=== PATIENT | female | born 1985 | race Caucasian/White ===

== ENCOUNTER 2021-04-13 19:47 | Emergency (ER) | payer OTHER ==
--- NOTE | 2021-04-13 20:49 | EDM.PDOC ---
ED HPI GENERAL MEDICAL PROBLEM - General Chief Complaint: Upper Extremity Injury/Pain Stated Complaint: RIGHT WRIST PAIN Time Seen by Provider: 04/13/21 20:35 Source of Information: Reports: Patient, RN Notes Reviewed History Limitations: Reports: No Limitations - History of Present Illness INITIAL COMMENTS - FREE TEXT/NARRATIVE: Patient is a 36-year-old female who presents to the ER for the evaluation of her right wrist pain. Patient notes that this started about 24 hours ago, she states that the pain is somewhat steady, does seem to worsen when she grasps things, or tries to flex or extend her wrist at the wrist joint. States that she does feel some shooting pains up her arm, and into her elbow, and down her fingers as well. States there has been no trauma to the area, she is on vacation, they have been doing a lot of horseback riding, and farm activities but does not think she has done any major repetitive motions with her wrist. She has been taking Tylenol and Midol for pain management but nothing seems to be helping much at all. Patient denies any other sick-like symptoms, fever/chills, cough/shortness of breath, nausea/vomiting/diarrhea. Right Wrist Pain Score (Numeric/FACES): 6 - Related Data Allergies Allergy/AdvReac Type Severity Reaction Status Date / Time metoclopramide [From Reglan] Allergy Shortness Verified 04/13/21 20:10 of Breath Penicillins Allergy Other Verified 04/13/21 20:11 Home Meds: Home Meds . [No Known Home Meds] 04/13/21 [History] Past Medical History - Past Health History Medical/Surgical History: Denies Medical/Surgical History Social & Family History - Tobacco Use Tobacco Use Status *Q: Never Tobacco User Second Hand Smoke Exposure: No - Caffeine Use Caffeine Use: Reports: Coffee - Recreational Drug Use Recreational Drug Use: No Review of Systems - Review of Systems Review Of Systems: Comprehensive ROS is negative, except as noted in HPI. 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.) Neurological: Alert, Oriented, Normal Cognition, No Motor/Sensory Deficits Psychiatric: Normal Affect, Normal Mood Skin Exam: Warm, Dry, Intact, Normal Color, No Rash Course - Vital Signs Last Recorded V/S: Last Vital Signs Temp 97.1 F 04/13/21 20:09 Pulse 88 04/13/21 20:09 Resp 18 04/13/21 20:09 BP 116/72 04/13/21 20:09 Pulse Ox 98 04/13/21 20:09 - Orders/Labs/Meds Orders: Active Orders 24 hr Category Date Time Status Wrist Comp Min 3V Rt [CR] Stat Exams 04/13/21 20:38 Ordered DME for Discharge [COMM] Routine Oth 04/13/21 21:01 Ordered - Re-Assessments/Exams Free Text/Narrative Re-Assessment/Exam: 04/13/21 21:10 Patient presents to the ER for her right wrist pain, x-rays were taken, and demonstrate no acute fracture or other bony abnormality. I will provide the patient with a cock-up wrist splint from the DME closet, to stabilize the wrist, and prevent further injury from taking place. Patient will also be started on prednisone for suspected tendinitis/nerve inflammation. Departure - Departure Time of Disposition: 21:03 Disposition: Home, Self-Care 01 Condition: Good Clinical Impression: Acute pain of right wrist, Tendinitis of right wrist - Discharge Information *PRESCRIPTION DRUG MONITORING PROGRAM REVIEWED*: No *COPY OF PRESCRIPTION DRUG MONITORING REPORT IN PATIENT JUNIE: No Instructions: Tendinitis, [id number] Referrals: PCP,Not In Area [Primary Care Provider] - Forms: ED Department Discharge Additional Instructions: You have been evaluated in the ED for your right wrist pain. Your x-ray demonstrated no acute fracture or bony abnormality. Your pain is thought likely due to tendinitis, which is an aggravation or inflammation of the tendons in your right wrist. Please use ice as tolerated to the affected area. Please try to elevate the affected area to relieve swelling. You have been provided with a brace, to prevent further injury and/or stabilize the right wrist. You have been provided with a prescription for prednisone, dosing will be 1 tablet 2 times a day for 5 days, then 1 tablet daily for 5 days. Due to the medication being filled to [facility], you will have 5 tablets left over, you may discard the use at your discretion. If this does not seem to be making your pain much better at all, highly recommend you follow-up with a care provider for further imaging like MRI of the right wrist. Please return to ED if your symptoms should change or worsen. Sepsis Event Note (ED) - Evaluation Sepsis Screening Result: No Definite Risk - Focused Exam Vital Signs: Vital Signs Temp Pulse Resp BP Pulse Ox 04/13/21 20:09 97.1 F 88 18 116/72 98 - My Orders Last 24 Hours: My Active Orders 04/13/21 20:38 Wrist Comp Min 3V Rt [CR] Stat 04/13/21 21:01 DME for Discharge [COMM] Routine - Assessment/Plan Last 24 Hours: My Active Orders 04/13/21 20:38 Wrist Comp Min 3V Rt [CR] Stat 04/13/21 21:01 DME for Discharge [COMM] Routine
--- NOTE | 2021-04-14 08:53 | CR ---
Right wrist: 3 views of the right wrist were obtained. Comparison: No prior wrist study is available. Joint spaces are maintained. No acute fracture, dislocation or other bony abnormality is appreciated. Impression: 1. No abnormality is identified on right wrist exam. Diagnostic code #1
== END 2021-04-13 21:25 | disposition home or self-care (01) ==
LOC: JD.ED 19:47
DX: M77.8 Other enthesopathies, not elsewhere classified (principal); Z88.8 Allergy status to other drugs, medicaments and biological substances; Z88.0 Allergy status to penicillin
CPT/HCPCS: 73110-26-RT; 73110-RT; 99283; 99283-25